=== PATIENT | male | born 1950 | race Caucasian/White ===

== ENCOUNTER 2017-11-06 11:31 | Emergency (ER) | payer MEDICARE, MEDICAID ==
[~2017-11-06] VITALS: Ht 182.9 cm; Wt 68.5 kg
[~2017-11-06 11:31] MED LIST: MELO-82 PO; MORP10CA11 PO; NORCO10T PO; RES15C PO; SIMV10TA2 PO
[2017-11-06 12:22] VITALS: BP 92/69
== END 2017-11-06 12:24 | disposition home or self-care (01) ==
LOC: ER 11:31
DX: Z02.89 Encounter for other administrative examinations (principal); E78.00 Pure hypercholesterolemia, unspecified; G89.29 Other chronic pain; F17.200 Nicotine dependence, unspecified, uncomplicated; Z79.899 Other long term (current) drug therapy
CPT/HCPCS: 99281

== ENCOUNTER 2020-06-28 12:41 | Emergency (ER) | payer MEDICARE, MEDICAID ==
[~2020-06-28] VITALS: Ht 180.3 cm; Wt 68.0 kg
[2020-06-28 12:43] VITALS: BP 143/86
[2020-06-28] MEDS ORDERED: AMOX500C4 PO (13:50)
[2020-06-28] MEDS ORDERED: HYDR-4353 PO (13:50)
== END 2020-06-28 14:10 | disposition home or self-care (01) ==
LOC: ER 12:41
DX: K02.9 Dental caries, unspecified (principal); E78.00 Pure hypercholesterolemia, unspecified; G89.29 Other chronic pain; M54.9 Dorsalgia, unspecified; F41.9 Anxiety disorder, unspecified; M19.90 Unspecified osteoarthritis, unspecified site; Z79.899 Other long term (current) drug therapy
CPT/HCPCS: 99283

== ENCOUNTER 2022-01-31 09:14 | Emergency (ER) | payer MEDICARE, MEDICAID ==
[~2022-01-31] VITALS: Ht 180.3 cm; Wt 57.0 kg
[~2022-01-31 09:14] MED LIST changes: +AMOX500C4 PO
[2022-01-31 10:13] VITALS: BP 130/76
== END 2022-01-31 10:35 | disposition home or self-care (01) ==
LOC: ER 09:15
DX: G89.29 Other chronic pain (principal); M54.6 Pain in thoracic spine; E78.00 Pure hypercholesterolemia, unspecified; M19.90 Unspecified osteoarthritis, unspecified site; Z79.2 Long term (current) use of antibiotics; Z79.899 Other long term (current) drug therapy
CPT/HCPCS: 99281

== ENCOUNTER 2022-10-07 08:03 | Day surgery (SDC) | payer MEDICARE, MEDICAID ==
[~2022-10-07] VITALS: Ht 176.5 cm; Wt 59.1 kg
[~2022-10-07 08:03] MED LIST changes: +SIMV-341 PO; -SIMV10TA2 PO
[2022-10-07 08:20] VITALS: BP 143/88
[2022-10-07] MEDS ORDERED: LIDOcaine Viscous 15ml cup ONE (08:37)
[2022-10-07] MEDS ORDERED: IBUP-24 PO (08:37)
[2022-10-07] MEDS ORDERED: MIDAZolam 1 MG/ML 5ML VIAL ONE (08:37)
[2022-10-07] MEDS ORDERED: TRAM50TA2 PO (08:37)
[2022-10-07] MEDS ORDERED: diphenhydrAMINE 50 mg/ml inj ONE (08:37)
[2022-10-07] MEDS ORDERED: fentaNYL/PF 50MCG/1 ML 2ML syringe ONE (08:37)
[2022-10-07 09:32] VITALS: BP 126/70
[2022-10-07 09:42] VITALS: BP 128/79
[2022-10-07 09:52] VITALS: BP 124/80
== END 2022-10-07 10:08 | disposition home or self-care (01) ==
LOC: GI LAB 08:03
PROVIDERS: ATTEND Internal Medicine Gastroenterology
DX: R13.10 Dysphagia, unspecified (principal); K29.50 Unspecified chronic gastritis without bleeding; B96.81 Helicobacter pylori [H. pylori] as the cause of diseases classified elsewhere; F17.210 Nicotine dependence, cigarettes, uncomplicated; I25.10 Atherosclerotic heart disease of native coronary artery without angina pectoris; Z72.89 Other problems related to lifestyle; Z86.19 Personal history of other infectious and parasitic diseases; Z79.899 Other long term (current) drug therapy
CPT/HCPCS: 43239; 88305; 88342; G0500; J2250; J3010; J7030; Z7512; 99152; A4620; J1200